=== PATIENT | female | born 1955 | race Caucasian/White ===

== ENCOUNTER 2023-03-12 12:36 | Emergency (ER) | payer OTHER ==
[2023-03-12] MEDS ORDERED: MAG HYDROX/AL HYDROX/SIMETH -MYLANTA- ORAL SUSPENSION PO ONE (12:57)
[2023-03-12] MEDS ORDERED: FAMOTIDINE 20 MG/50 ML IVPB 20 MG/50 ML MG IVPB ONE (12:57)
[2023-03-12] MEDS ORDERED: SODIUM CHLORIDE 0.9% 500 ML INFUS.BAG IV ONE (12:57)
[2023-03-12 13:01] VITALS: TEMP 97.8; BMI 31.5
[2023-03-12 13:42] LABS: BASO % 0.9 % (0-2.0); EOS % 2.2 % (0-4.5); HEMATOCRIT 38.6 % (32.4-45.2); HEMOGLOBIN 12.3 GM/dL (10.7-15.3); LYMPH % 32.6 % (8-40); MCH 26.7 pg (25.7-33.7); MCHC 31.9 g/dl (32.0-36.0); MEAN CELL VOLUME 83.6 fl (80-96); MEAN PLT VOLUME 9.8 fl (7.5-11.1); MONO % 5.4 % (3.8-10.2); NEUT % 58.9 % (42.8-82.8); PLATELET COUNT 290 10^3/uL (134-434); RBC 4.62 M/mm3 (3.60-5.2); RDW 14.8 % (11.6-15.6); WHITE BLOOD COUNT 7.6 K/mm3 (4.0-10.0)
[2023-03-12 13:51] LABS: POTASSIUM 4.4 mmol/L (3.5-5.1)
[2023-03-12 13:57] LABS: CALCIUM 10.2 mg/dL (8.5-10.1)
[2023-03-12 13:58] LABS: ALBUMIN 3.7 g/dl (3.4-5.0); BLOOD UREA NITROGEN 23.6 mg/dL (7-18); MAGNESIUM 1.9 mg/dL (1.8-2.4)
[2023-03-12] MEDS ORDERED: FAMOTIDINE 20 MG TABLET PO ONE (13:59)
[2023-03-12 14:01] LABS: CREATININE 0.9 mg/dL (0.55-1.3)
[2023-03-12] MEDS ORDERED: FAMOTIDINE 20 MG TABLET ONE (14:01)
[2023-03-12 14:02] LABS: BILIRUBIN,TOTAL 0.4 mg/dL (0.2-1); TOT PROT 6.8 g/dl (6.4-8.2)
[2023-03-12 17:20] VITALS: BP 129/60; PULSE 75; RESP 18
== END 2023-03-12 17:20 | disposition home or self-care (01) ==
LOC: JER 12:36
DX: R55 Syncope and collapse (principal); R74.01 Elevation of levels of liver transaminase levels; H53.8 Other visual disturbances; R42 Dizziness and giddiness; R10.9 Unspecified abdominal pain
CPT/HCPCS: 36415; 71045-TC-FY; 76705-TC; 80053; 80307; 83690; 83735; 85025; 93005; 93010; 99285-25